=== PATIENT | male | born 2000 | race American Indian/Alaskan Native ===

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

== ENCOUNTER 2021-06-19 12:21 | Emergency (ER) | payer SELFPAY ==
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
[2021-06-19 17:03] VITALS: BP 117/72
== END 2021-06-19 17:04 | disposition home or self-care (01) ==
LOC: ED 12:21
DX: M79.18 Myalgia, other site (principal); M25.512 Pain in left shoulder; M25.562 Pain in left knee; M54.50 Low back pain, unspecified; V49.59XA Passenger injured in collision with other motor vehicles in traffic accident, initial encounter; X58.XXXA Exposure to other specified factors, initial encounter; Y93.89 Activity, other specified; Y92.89 Other specified places as the place of occurrence of the external cause; Y99.8 Other external cause status
CPT/HCPCS: 99281